=== PATIENT | male | born 1955 | race Caucasian/White ===

== ENCOUNTER 2017-12-05 06:58 | Emergency (ER) | payer OTHER ==
[~2017-12-05] VITALS: Ht 182.9 cm; Wt 61.7 kg
[~2017-12-05 06:58] MED LIST: MOBIC15 MG PO; OXYCODONE HCL15 MG PO; VALIUM; XANAX; XANAX1 MG PO
[2017-12-05] MEDS ORDERED: OXYCODONE HCL15 MG PO (08:01)
== END 2017-12-05 08:45 | disposition home or self-care (01) ==
LOC: ER 06:58
DX: S09.90XA Unspecified injury of head, initial encounter (principal); R47.02 Dysphasia; M54.9 Dorsalgia, unspecified; G89.29 Other chronic pain; F17.210 Nicotine dependence, cigarettes, uncomplicated; W19.XXXA Unspecified fall, initial encounter; Y93.89 Activity, other specified; Y92.89 Other specified places as the place of occurrence of the external cause; Y99.8 Other external cause status

== ENCOUNTER 2018-02-19 07:52 | Inpatient (IN) | payer OTHER ==
[~2018-02-19] VITALS: Ht 170.2 cm; Wt 52.6 kg
--- NOTE | ~2018-02-19 | EKG ---
[address] [address] ELECTROCARDIOGRAM REPORT Name: VISHNU LANG Room #: 213-[facility]#: [id number] Admission: 02/19/18 Attend Phys: Harlan Cornell MD Discharge: 02/19/18 Date of : 57 Report #: [id number] THIS REPORT FOR: //name// [facility] ED Test Date: 2018-02-19 Test Time: 08:33:35 Pat Name: VISHNU LANG Department: Room: [facility] Gender: M Detective [employer]: [facility] : 1955 Requested By: Palak Morrison Order Number: [id number] MD: Jonathan Burleson Measurements Intervals [place] Rate: 71 P: 85 VA: 139 QRS: -10 QRSD: 136 T: 45 QT: 417 QTc: 454 Interpretive Statements Sinus rhythm Right bundle branch block Compared to ECG 01/04/2018 10:46:28 No significant change was found Electronically Signed On 02-20-2018 8:38:02 CDT by Jonathan Burleson [email or web address] <ELECTRONICALLY SIGNED> By: Jonathan Burleson MD, [facility] 02/20/1838 2 2 Jonathan Burleson MD, [facility] /EPI
[~2018-02-19 07:52] MED LIST changes: +ROXICODONE15 M1 PO
[2018-02-19] MEDS ORDERED: FENTANYL1 EAC4 TRANSDERM (08:12)
[2018-02-19] MEDS ORDERED: PROZAC20 MG PER TUBE (08:12)
[2018-02-19] MEDS ORDERED: ACETAMINOP160 MG/5 M PER TUBE (08:13)
[2018-02-19] MEDS ORDERED: PROAIR HFA8.5 GM INH (08:15)
[2018-02-19] MEDS ORDERED: DIOCTO50 MG/5 ML PER TUBE (08:16)
[2018-02-19] MEDS ORDERED: NEURONTIN 300300 M1 PER TUBE (08:17)
[2018-02-19] MEDS ORDERED: IBUPROFEN100 MG/52 PER TUBE (08:18)
[2018-02-19] MEDS ORDERED: [UNRECOGNIZED DRUG - OTHER] PER TUBE (08:23)
[2018-02-19] MEDS ORDERED: ROXICODONE30 M1 PO (08:26)
[2018-02-19] MEDS ORDERED: NICOTINE PATCH1 EAC2 TRANSDERM (08:29)
[2018-02-19 08:33] LABS: ABSOLUTE NEUTROPHILS 7.9 thou/uL (1.4-8.2); BASOPHILS 1.3 % (0.0-2.0); EOSINOPHILS 2.1 % (0.0-3.0); HEMATOCRIT 32.5 % (42.0-52.0); HEMOGLOBIN 11.2 gm/dL (14.0-18.0); LYMPHOCYTES 16.2 % (24.0-44.0); MCH 31.1 pg (26.0-34.0); MCHC 34.4 g/dL (28.0-37.0); MCV 90.4 fL (80.0-100.0); MONOCYTES 6.3 % (1.0-8.0); PLATELET COUNT 499 thou/uL (150-400); POLYS 74.1 % (36.0-66.0); RDW 13.9 % (10.5-14.5); WBC 10.7 thou/uL (4.0-11.0)
[2018-02-19 08:43] LABS: CALCIUM 10.2 mg/dL (8.5-10.1); CREATININE 0.9 mg/dL (0.7-1.3); POTASSIUM 4.1 mmol/L (3.5-5.1)
[2018-02-19 08:53] LABS: APTT 27.6 Seconds (24.5-32.8); PROTIME 10.6 Seconds (9.3-11.4)
[2018-02-19 11:22] VITALS: BP 136/82
[2018-02-19 13:02] VITALS: BP 163/80
[2018-02-19 13:44] VITALS: BP 103/64
[2018-02-19 15:58] VITALS: BP 103/64
== END 2018-02-19 16:30 | disposition home or self-care (01) | DRG 206 ==
LOC: ER 07:52 → EROBS 10:48 → 2N 13:07
PROVIDERS: Emergency Medicine
DX: J95.01 Hemorrhage from tracheostomy stoma (principal); R04.2 Hemoptysis; Z68.1 Body mass index [BMI] 19.9 or less, adult; M54.9 Dorsalgia, unspecified; G89.29 Other chronic pain; Y83.8 Other surgical procedures as the cause of abnormal reaction of the patient, or of later complication, without mention of misadventure at the time of the procedure; Y82.8 Other medical devices associated with adverse incidents; F17.210 Nicotine dependence, cigarettes, uncomplicated; R04.1 Hemorrhage from throat; R63.4 Abnormal weight loss; R13.10 Dysphagia, unspecified; Z79.899 Other long term (current) drug therapy
CPT/HCPCS: 10081

== ENCOUNTER 2018-03-25 03:35 | Inpatient (IN) | payer OTHER ==
[~2018-03-25] VITALS: Ht 170.2 cm; Wt 52.6 kg
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
--- NOTE | ~2018-03-25 | EKG ---
[address] [address] ELECTROCARDIOGRAM REPORT Name: VISHNU LANG Room #: 214- [facility] IN M.R.#: [id number] Admission: 03/25/18 Attend Phys: Harlan Cornell MD Discharge: Date of : 57 Report #: [id number] THIS REPORT FOR: //name// [facility] ED Test Date: 2018-03-25 Test Time: 03:47:44 Pat Name: VISHNU LANG Department: Room: 214 Gender: M Access Rep: Yaya SOLIS : 1955 Requested By: Palak Morrison Order Number: [id number] MD: Ra Beatty Measurements Intervals [place] Rate: 118 P: [place]: QRS: -88 QRSD: 136 T: 69 QT: 354 QTc: 497 Interpretive Statements Regular Rhythm RBBB and LAFB Nonspecific ST/T abnormalities Compared to ECG 02/19/2018 08:33:35 Left anterior fascicular block now present Electronically Signed On 03-26-2018 23:17:55 [employer] WORK[employer] by Ra Beatty [email or web address] <ELECTRONICALLY SIGNED> By: Ra Beatty MD 03/26/18 2317 6 6 Ra Beatty MD /EPI
[~2018-03-25 03:35] MED LIST changes: +ACETAMINOP160 MG/5 M PER TUBE; +DIOCTO50 MG/5 ML PER TUBE; +FENTANYL1 EAC4 TRANSDERM; +IBUPROFEN100 MG/52 PER TUBE; +NEURONTIN 300300 M1 PER TUBE; +NICOTINE PATCH1 EAC2 TRANSDERM; +PROAIR HFA8.5 GM INH; +PROZAC20 MG PER TUBE; +ROXICODONE30 M1 PO; +[UNRECOGNIZED DRUG - OTHER] PER TUBE
[2018-03-25 04:00] LABS: HEMOGLOBIN 10.8 gm/dL (14.0-18.0); MCH 30.2 pg (26.0-34.0); MCHC 33.7 g/dL (28.0-37.0); MCV 89.7 fL (80.0-100.0); RBC 3.56 mil/uL (4.50-6.00); RDW 14.1 % (10.5-14.5); WBC 16.3 thou/uL (4.0-11.0)
[2018-03-25 04:08] LABS: CALCIUM 9.8 mg/dL (8.5-10.1)
[2018-03-25 04:12] LABS: BE(vivo) 1.7 mmol/L (-2 to +3); HCO3 26.3 mmol/L (22.0-26.0); PCO2 41.3 mmHg (35.0-45.0); PO2 134.2 mmHg (80.0-100.0); pH 7.422 (7.360-7.450); sO2 98.7 % (92.0-98.0)
[2018-03-25 06:16] VITALS: BP 80/56
[2018-03-25 06:55] VITALS: BP 91/61
[2018-03-25 08:00] VITALS: BP 77/40
[2018-03-25 09:15] VITALS: BP 78/53
[2018-03-25 19:41] VITALS: BP 86/60
[2018-03-26 00:58] VITALS: BP 93/58
[2018-03-26 04:39] LABS: HEMOGLOBIN 9.5 gm/dL (14.0-18.0); MCH 30.4 pg (26.0-34.0); MCHC 33.9 g/dL (28.0-37.0); MCV 89.6 fL (80.0-100.0); RBC 3.12 mil/uL (4.50-6.00); RDW 13.9 % (10.5-14.5); WBC 10.4 thou/uL (4.0-11.0)
[2018-03-26 04:47] LABS: CALCIUM 9.4 mg/dL (8.5-10.1); CREATININE 0.7 mg/dL (0.7-1.3); POTASSIUM 3.8 mmol/L (3.5-5.1)
[2018-03-26 05:05] VITALS: BP 111/50
[2018-03-26 07:08] VITALS: BP 104/70
[2018-03-26 15:58] VITALS: BP 151/106
[2018-03-26 20:25] VITALS: BP 107/73
[2018-03-27] MEDS ORDERED: SCOPOLAMINE1 EACH TRANSDERM (10:32)
[2018-03-27 14:00] VITALS: BP 131/82
[2018-03-27 20:52] VITALS: BP 1065/76
[2018-03-28 04:19] VITALS: BP 93/63
[2018-03-28 08:32] VITALS: BP 101/65
[2018-03-28 13:57] VITALS: BP 101/65
== END 2018-03-28 16:46 | disposition home health service (06) | DRG 205 ==
LOC: ER 03:35 → EROBS 05:44 → 2N 05:44
PROVIDERS: Emergency Medicine; Hospitalist
PROC: 0BH17EZ Insertion of Endotracheal Airway into Trachea, Via Natural or Artificial Opening (ICD-10-PCS; principal; 2018-03-25)
PROC: 0BJ08ZZ Inspection of Tracheobronchial Tree, Via Natural or Artificial Opening Endoscopic (ICD-10-PCS; principal; 2018-03-25)
DX: J95.03 Malfunction of tracheostomy stoma (principal); J96.21 Acute and chronic respiratory failure with hypoxia; E87.2 Acidosis; C14.0 Malignant neoplasm of pharynx, unspecified; F17.210 Nicotine dependence, cigarettes, uncomplicated; I95.9 Hypotension, unspecified; Z66 Do not resuscitate; G89.29 Other chronic pain; Z93.0 Tracheostomy status; Z79.899 Other long term (current) drug therapy
CPT/HCPCS: 10081; 10797